=== PATIENT | male | born 1960 | race Hispanic/Latino ===

== ENCOUNTER 2017-02-03 06:49 | Emergency (ER) | payer OTHER, BC, MEDICAID ==
[~2017-02-03] VITALS: Ht 167.6 cm; Wt 81.7 kg
== END 2017-02-03 08:11 | disposition home or self-care (01) ==
LOC: ED 06:49
DX: S05.01XA Injury of conjunctiva and corneal abrasion without foreign body, right eye, initial encounter (principal); E11.9 Type 2 diabetes mellitus without complications; E05.90 Thyrotoxicosis, unspecified without thyrotoxic crisis or storm; W22.8XXA Striking against or struck by other objects, initial encounter
CPT/HCPCS: 99282